=== PATIENT | male | born 1975 | race Caucasian/White ===

== ENCOUNTER 2022-04-10 23:55 | Emergency (ER) | payer BC, MEDICAID ==
[~2022-04-10] VITALS: Ht 172.7 cm; Wt 119.1 kg
[2022-04-11] MEDS ORDERED: RISP2TAB32 PO (00:11)
[2022-04-11] MEDS ORDERED: WELLTAB38 PO (00:11)
[2022-04-11] MEDS ORDERED: TRAZ-257 PO (00:11)
[2022-04-11] MEDS ORDERED: LISI10TA22 PO (00:11)
[2022-04-11] MEDS ORDERED: EFFE150C2 PO (00:11)
[2022-04-11] MEDS ORDERED: ALBU6.7H6 INH (00:12)
[2022-04-11] MEDS ORDERED: FLUT22IN INH (00:12)
[2022-04-11] MEDS ORDERED: OSELTAMIVIR PHOSPHATE 75 MG CAP (TAMIFLU) PO ONE (09:00)
[2022-04-11] MEDS ORDERED: ALBUTEROL 90 MCG/ACT 8GM HFA INHALER INH ONE (09:00)
[2022-04-11] MEDS ORDERED: ONDANSETRON 4MG ORAL DISINTEGRATING TAB PO ONE (09:00)
[2022-04-11] MEDS ORDERED: OSEL75CA PO (09:45)
[2022-04-11] MEDS ORDERED: VENTAER INH (09:45)
[2022-04-11 10:05] VITALS: BP 121/84
== END 2022-04-11 10:08 | disposition home or self-care (01) ==
LOC: EDBD 23:55 → M ED 23:55
DX: J09.X2 Influenza due to identified novel influenza A virus with other respiratory manifestations (principal); Z20.822 Contact with and (suspected) exposure to COVID-19; I10 Essential (primary) hypertension; J45.909 Unspecified asthma, uncomplicated; F17.200 Nicotine dependence, unspecified, uncomplicated

== ENCOUNTER → 2022-05-22 | Outpatient (REF) | payer MEDICAID, MEDICARE, OTHER ==
[~2022-05-22] MED LIST: ALBU6.7H6 INH; EFFE150C2 PO; FLUT22IN INH; LISI10TA22 PO; OSEL75CA PO; RISP2TAB32 PO; TRAZ-257 PO; VENTAER INH; WELLTAB38 PO
[2022-05-22 18:29] LABS: ALBUMIN 3.4 G/DL (3.2-5.2); ALKALINE PHOSPHATASE 131 U/L (46-116); ALT/SGPT 22 U/L (7.0-40); AST/SGOT 19 U/L (<34); BILIRUBIN,TOTAL 0.3 MG/DL (0.3-1.2); BLOOD UREA NITROGEN 12 MG/DL (9-23); CALCIUM LEVEL 8.8 MG/DL (8.5-10.1); CARBON DIOXIDE LEVEL 31 MMOL/L (20-31); CHLORIDE LEVEL 102 MMOL/L (98-107); CHOLESTEROL LEVEL 185 MG/DL (<200); CHOLESTEROL RISK RATIO 3.58 (<5); CREATININE FOR GFR 0.83 MG/DL (0.70-1.30); FREE T3 3.6 PG/ML (2.3-4.2); FREE T4 1.03 NG/DL (0.89-1.76); GLOMERULAR FILTRATION RATE > 60.0 (>60); GLUCOSE, FASTING 88 MG/DL (60-100); HDL CHOLESTEROL 51.6 MG/DL (>40); NON-HDL-C 133 MG/DL; POTASSIUM SERUM 5.1 MMOL/L (3.5-5.1); SODIUM LEVEL 138 MMOL/L (136-145); TOTAL PROTEIN 7.4 G/DL (5.7-8.2); TRIGLYCERIDES LEVEL 122 MG/DL (<150)
[2022-05-22 18:30] LABS: THYROID STIMULATING HORMONE 2.866 uIU/ML (0.55-4.78)
[2022-05-22 18:32] LABS: THYROGLOBULIN ANTIBODY < 15.0 U/ML (<60.0); THYROID PEROXIDASE ANTIBODY 33 U/ML (<60.0)
[2022-05-22 18:54] LABS: HIV 1&2 SCREEN CENTAUR NEGATIVE (NEGATIVE)
[2022-05-22 19:02] LABS: HEPATITIS C VIRUS ABY INDEX 0.3 INDEX (<0.8)
[2022-05-22 19:03] LABS: HEMOGLOBIN A1c 6.1 % (4.0-6.0)
== END ==
LOC: M LAB REF 16:38
PROVIDERS: ATTEND Nurse Practitioner Family
DX: E11.65 Type 2 diabetes mellitus with hyperglycemia (principal); E04.1 Nontoxic single thyroid nodule; I10 Essential (primary) hypertension; E66.9 Obesity, unspecified; Z11.9 Encounter for screening for infectious and parasitic diseases, unspecified; Z79.899 Other long term (current) drug therapy

== ENCOUNTER 2022-09-23 14:28 | Emergency (ER) | payer OTHER ==
[~2022-09-23] VITALS: Ht 172.7 cm; Wt 138.9 kg
[2022-09-23 14:29] VITALS: BP 120/82
[2022-09-23] MEDS ORDERED: AMOX875T2 PO (15:03)
[2022-09-23] MEDS ORDERED: ZALE10CA PO (15:07)
[2022-09-23] MEDS ORDERED: MIRT-62 PO (15:07)
[2022-09-23] MEDS ORDERED: EFFE75CA2 PO (15:07)
== END 2022-09-23 15:11 | disposition home or self-care (01) ==
LOC: M ED 14:28
DX: K08.89 Other specified disorders of teeth and supporting structures (principal); F17.200 Nicotine dependence, unspecified, uncomplicated; Z79.51 Long term (current) use of inhaled steroids; Z79.899 Other long term (current) drug therapy

== ENCOUNTER 2023-01-05 18:31 | Emergency (ER) | payer OTHER ==
[~2023-01-05] VITALS: Ht 172.7 cm; Wt 133.9 kg
[~2023-01-05 18:31] MED LIST changes: +AMOX875T2 PO; +EFFE75CA2 PO; +MIRT-62 PO; +ZALE10CA PO
[2023-01-06] MEDS ORDERED: ACETAMINOPHEN TAB 650MG DOSE (2X325MG) PO ONE (02:00)
[2023-01-06] MEDS ORDERED: LIDOCAINE 1% MDV 20ML VIAL SC ONE (07:35)
[2023-01-06] MEDS ORDERED: BOOSTRIX VACCINE (TETANUS/DIPHTH/ACEL. PERTUSSIS) 0.5ML SYR IM ONE (07:35)
[2023-01-06 07:44] VITALS: BP 124/74; TEMP 98.2; O2SAT 99
== END 2023-01-06 09:41 | disposition home or self-care (01) ==
LOC: EDBD 18:31 → M ED 18:31
DX: S61.011A Laceration without foreign body of right thumb without damage to nail, initial encounter (principal); X99.1XXA Assault by knife, initial encounter; Y92.009 Unspecified place in unspecified non-institutional (private) residence as the place of occurrence of the external cause; Y93.89 Activity, other specified; Y99.8 Other external cause status; I10 Essential (primary) hypertension; J45.909 Unspecified asthma, uncomplicated; Z79.51 Long term (current) use of inhaled steroids; Z79.899 Other long term (current) drug therapy
CPT/HCPCS: 12001; 73130; 90715; 99284; J0665

== ENCOUNTER 2023-06-15 11:11 | Inpatient (IN) | payer OTHER ==
[~2023-06-15] VITALS: Ht 175.3 cm; Wt 156.4 kg
[~2023-06-15 11:11] MED LIST changes: -EFFE150C2 PO; +EFFE150C3 PO; -MIRT-62 PO; +MIRT-88 PO
[2023-06-15] MEDS ORDERED: RISP3TAB20 PO (11:32)
[2023-06-15 12:40] LABS: BASO # 0.1 10^3/uL (0.0-0.2); BASO % 0.5 % (0.0-1.0); EOS # 0.3 10^3/uL (0.0-0.5); EOS % 2.2 % (0.0-3.0); HEMATOCRIT 45.7 % (42.0-52.0); HEMOGLOBIN 14.8 g/dl (13.5-17.5); LYMPH # 2.8 10^3/uL (1.5-5.0); LYMPH % 18.8 % (24.0-44.0); MEAN CORPUSCULAR HEMOGLOBIN 29.8 pg (27.0-33.0); MEAN CORPUSCULAR HGB CONC 32.4 g/dl (32.0-36.5); MONO # 1.2 10^3/uL (0.0-0.8); MONO % 7.7 % (2.0-8.0); NEUTROPHILS # 10.5 10^3/uL (1.5-8.5); NEUTROPHILS % 70.3 % (36.0-66.0); PLATELET COUNT, AUTOMATED 266 10^3/uL (150-450); RED BLOOD COUNT 4.97 10^6/uL (4.30-6.10); WHITE BLOOD COUNT 14.9 10^3/uL (4.0-10.0)
[2023-06-15 13:00] LABS: C REACTIVE PROTEIN QUANTITATIV 1.7 MG/DL (<1.0); MAGNESIUM LEVEL 1.9 MG/DL (1.8-2.4)
[2023-06-15 13:01] LABS: LIPASE 33 U/L (12-53)
[2023-06-15 13:04] LABS: ALBUMIN 3.5 G/DL (3.2-5.2); ALKALINE PHOSPHATASE 154 U/L (46-116); ALT/SGPT 24 U/L (7.0-40); AST/SGOT 14 U/L (<34); BILIRUBIN,DIRECT 0.1 MG/DL (<0.4); BILIRUBIN,TOTAL 0.4 MG/DL (0.3-1.2); BLOOD UREA NITROGEN 11 MG/DL (9-23); CALCIUM LEVEL 9.4 MG/DL (8.5-10.1); CARBON DIOXIDE LEVEL 32 MMOL/L (20-31); CHLORIDE LEVEL 103 MMOL/L (98-107); CK-MB VALUE MASS < 1.0 NG/ML (<3.6); CPK CREATINE PHOSPHOKINASE 122 U/L (46-171); CREATININE FOR GFR 0.89 MG/DL (0.70-1.30); GLOMERULAR FILTRATION RATE > 60.0 (>60); GLUCOSE, FASTING 143 MG/DL (60-100); MB/CK RELATIVE INDEX 0.81 (< OR =4); POTASSIUM SERUM 4.9 MMOL/L (3.5-5.1); SODIUM LEVEL 136 MMOL/L (136-145); TOTAL PROTEIN 7.3 G/DL (5.7-8.2)
[2023-06-15 13:06] LABS: FREE T4 1.24 NG/DL (0.89-1.76); THYROID STIMULATING HORMONE 2.342 uIU/ML (0.55-4.78)
[2023-06-15 13:20] LABS: RSV AMPLIFICATION NEGATIVE (NEGATIVE)
[2023-06-15 14:08] LABS: CK-MB VALUE MASS < 1.0 NG/ML (<3.6)
[2023-06-15 14:09] LABS: CPK CREATINE PHOSPHOKINASE 112 U/L (46-171); MB/CK RELATIVE INDEX 0.89 (< OR =4)
[2023-06-15] MEDS ORDERED: MOM 30ML SUSPENSION UDC PO PRN (14:40)
[2023-06-15] MEDS ORDERED: FLUT12AE3 INH (14:42)
[2023-06-15] MEDS ORDERED: HOME MED LIST COMPLETE! XX SCH (14:45)
[2023-06-15 15:33] LABS: PROCALCITONIN <0.04 ng/ml
[2023-06-15 15:45] VITALS: BP 126/70; TEMP 98.4; O2SAT 99
[2023-06-15] MEDS: ACETAMINOPHEN TAB 650MG DOSE (2X325MG) PO PRN (16:14)
[2023-06-15 16:23] VITALS: BP_SYST 130; BP_SYST 158; BP_SYST 165; BP_DIAS 105; BP_DIAS 107; BP_DIAS 69
[2023-06-15] MEDS ORDERED: ALBUTEROL 90 MCG/ACT 8GM HFA INHALER INH PRN (16:35)
[2023-06-15] MEDS ORDERED: FLUTICASONE HFA 220 MCG 12 GM INHALER (FLOVENT) INH PRN (16:35)
[2023-06-15 16:50] LABS: VENOUS BASE EXCESS 3.3 (-2.0-2.0); VENOUS HCO3 31.4 MMOL/L (23.0-27.0); VENOUS O2 SATURATION 56.2 % (60.0-80.0); VENOUS PARTIAL PRESSURE O2 27.7 mmHg (30.0-50.0); VENOUS PH 7.323 UNITS (7.330-7.430); VENOUS STANDARD HCO3 26.2 MMOL/L; VENOUS TOTAL CO2 33.3 MMOL/L (24.0-28.0)
[2023-06-15 17:15] LABS: INR 0.98; PROTHROMBIN TIME 12.7 SECONDS (12.5-14.5)
[2023-06-15 17:23] LABS: ERYTHROCYTE SEDIMENTATION RATE 26 mm/hr (0-15)
[2023-06-15] MEDS: LR 1,000 ML IV SCH (17:55)
[2023-06-15 20:00] VITALS: BP 141/66; TEMP 98.8; O2SAT 91
[2023-06-15] MEDS: risperiDONE 3 MG TAB PO SCH (20:07)
[2023-06-15] MEDS: DOCUSATE SODIUM 100MG CAPSULE PO SCH (20:07)
[2023-06-15] MEDS: MIRTAZAPINE 15 MG TAB PO SCH (20:07)
[2023-06-16 06:00] VITALS: BP 145/73; TEMP 98.4; O2SAT 93
[2023-06-16 06:14] LABS: HEMATOCRIT 42.1 % (42.0-52.0); HEMOGLOBIN 13.6 g/dl (13.5-17.5); MEAN CORPUSCULAR HEMOGLOBIN 29.6 pg (27.0-33.0); MEAN CORPUSCULAR HGB CONC 32.3 g/dl (32.0-36.5); MEAN CORPUSCULAR VOLUME 91.5 fl (80.0-96.0); PLATELET COUNT, AUTOMATED 224 10^3/uL (150-450); WHITE BLOOD COUNT 10.9 10^3/uL (4.0-10.0)
[2023-06-16 06:30] LABS: BLOOD UREA NITROGEN 11 MG/DL (9-23); CALCIUM LEVEL 8.7 MG/DL (8.5-10.1); CARBON DIOXIDE LEVEL 31 MMOL/L (20-31); CHLORIDE LEVEL 103 MMOL/L (98-107); CREATININE FOR GFR 0.99 MG/DL (0.70-1.30); GLOMERULAR FILTRATION RATE > 60.0 (>60); GLUCOSE, FASTING 114 MG/DL (60-100); MAGNESIUM LEVEL 1.8 MG/DL (1.8-2.4); POTASSIUM SERUM 4.4 MMOL/L (3.5-5.1); SODIUM LEVEL 138 MMOL/L (136-145)
[2023-06-16] MEDS ORDERED: ISOVUE-370 76% 100ML VIAL As Ordered ONE (07:48)
[2023-06-16] MEDS: RIVAROXABAN 10MG TAB (XARELTO) PO SCH (08:54)
[2023-06-16] MEDS: VENLAFAXINE **XR** 75MG CAPSULE PO SCH (08:54)
[2023-06-16] MEDS: FUROSEMIDE 40MG/4ML VIAL IV ONE (08:54)
[2023-06-16 08:55] VITALS: BP 141/75
[2023-06-16] MEDS: risperiDONE 2 MG TAB PO SCH (08:56)
[2023-06-16] MEDS ORDERED: VENLAFAXINE **XR** 75MG CAPSULE PO SCH (09:00)
[2023-06-16] MEDS: IBUPROFEN 600MG TAB PO ONE (11:32)
[2023-06-16 11:50] LABS: VENOUS BASE EXCESS 1.8 (-2.0-2.0); VENOUS HCO3 28.1 MMOL/L (23.0-27.0); VENOUS O2 SATURATION 74.5 % (60.0-80.0); VENOUS PARTIAL PRESSURE CO2 50.1 mmHg (38.0-50.0); VENOUS PARTIAL PRESSURE O2 36.2 mmHg (30.0-50.0); VENOUS PH 7.367 UNITS (7.330-7.430); VENOUS STANDARD HCO3 25.5 MMOL/L; VENOUS TOTAL CO2 29.7 MMOL/L (24.0-28.0)
[2023-06-16 14:30] VITALS: BP 100/64; TEMP 98.4; O2SAT 94
[2023-06-16] MEDS: FUROSEMIDE 40MG/4ML VIAL IV SCH (16:43)
[2023-06-16] MEDS: INFLUENZA QUADRIVALENT PF VACCINE 0.5ML SYRINGE IM.IMMUN ONE (17:18)
[2023-06-16 17:20] VITALS: BP 118/71
[2023-06-16 20:00] VITALS: BP 104/60; TEMP 97; O2SAT 95
[2023-06-17 05:00] VITALS: BP 106/62; TEMP 98.2; O2SAT 96
[2023-06-17] MEDS ORDERED: FURO20TA2 PO (10:48)
== END 2023-06-17 12:51 | disposition home or self-care (01) | DRG 194 ==
LOC: M ED 11:11 → M ED INP 14:37 → M MSPAV 15:45
PROVIDERS: ADMIT Student in an Organized Health Care Education/Training Program; ATTEND Student in an Organized Health Care Education/Training Program
PROC: B246ZZZ Ultrasonography of Right and Left Heart (ICD-10-PCS; principal; 2023-06-15)
DX: I11.0 Hypertensive heart disease with heart failure (principal); I27.20 Pulmonary hypertension, unspecified; F25.9 Schizoaffective disorder, unspecified; Z68.43 Body mass index [BMI] 50.0-59.9, adult; F43.10 Post-traumatic stress disorder, unspecified; J45.909 Unspecified asthma, uncomplicated; E04.2 Nontoxic multinodular goiter; R60.0 Localized edema; I50.33 Acute on chronic diastolic (congestive) heart failure; E66.9 Obesity, unspecified; F17.200 Nicotine dependence, unspecified, uncomplicated; R55 Syncope and collapse; G47.33 Obstructive sleep apnea (adult) (pediatric); I87.2 Venous insufficiency (chronic) (peripheral); F32.A Depression, unspecified; M79.662 Pain in left lower leg; I50.82 Biventricular heart failure; I50.813 Acute on chronic right heart failure; Z79.899 Other long term (current) drug therapy

== ENCOUNTER → 2023-06-28 | Outpatient (REF) | payer OTHER, MEDICAID ==
[~2023-06-28] MED LIST changes: +FLUT12AE3 INH; +FURO20TA2 PO; +RISP3TAB20 PO
[2023-06-28 17:16] LABS: BASO # 0.1 10^3/uL (0.0-0.2); BASO % 0.6 % (0.0-1.0); EOS # 0.3 10^3/uL (0.0-0.5); EOS % 2.7 % (0.0-3.0); HEMATOCRIT 46.4 % (42.0-52.0); HEMOGLOBIN 14.8 g/dl (13.5-17.5); LYMPH # 3.4 10^3/uL (1.5-5.0); LYMPH % 26.4 % (24.0-44.0); MEAN CORPUSCULAR HEMOGLOBIN 29.5 pg (27.0-33.0); MEAN CORPUSCULAR HGB CONC 31.9 g/dl (32.0-36.5); MEAN CORPUSCULAR VOLUME 92.4 fl (80.0-96.0); MONO # 0.9 10^3/uL (0.0-0.8); NEUTROPHILS % 62.7 % (36.0-66.0); PLATELET COUNT, AUTOMATED 349 10^3/uL (150-450); RED BLOOD COUNT 5.02 10^6/uL (4.30-6.10); WHITE BLOOD COUNT 12.7 10^3/uL (4.0-10.0)
[2023-06-28 17:39] LABS: ALBUMIN 3.4 G/DL (3.2-5.2); ALKALINE PHOSPHATASE 151 U/L (46-116); ALT/SGPT 33 U/L (7.0-40); AST/SGOT 17 U/L (<34); BILIRUBIN,DIRECT 0.1 MG/DL (<0.4); BILIRUBIN,TOTAL 0.3 MG/DL (0.3-1.2); BLOOD UREA NITROGEN 16 MG/DL (9-23); CARBON DIOXIDE LEVEL 32 MMOL/L (20-31); CHLORIDE LEVEL 103 MMOL/L (98-107); GLOMERULAR FILTRATION RATE > 60.0 (>60); GLUCOSE, FASTING 98 MG/DL (60-100); POTASSIUM SERUM 4.9 MMOL/L (3.5-5.1); SODIUM LEVEL 138 MMOL/L (136-145); TOTAL PROTEIN 7.3 G/DL (5.7-8.2)
[2023-06-28 17:41] LABS: HEMOGLOBIN A1c 5.9 % (4.0-6.0)
[2023-06-28 17:42] LABS: TOTAL 25(OH) VITAMIN D 16.5 NG/ML (20.0-100.0)
[2023-06-28 17:53] LABS: CREATININE, URINE 127.2 MG/DL; MAU/CREAT RATIO 5.5 MCG/MG (0.0-30.0)
== END ==
LOC: M LAB REF 16:18
PROVIDERS: ATTEND Nurse Practitioner Family
DX: E11.65 Type 2 diabetes mellitus with hyperglycemia (principal); E55.9 Vitamin D deficiency, unspecified; D72.829 Elevated white blood cell count, unspecified; I50.9 Heart failure, unspecified